=== PATIENT | male | born 2000 | race Hispanic/Latino ===

== ENCOUNTER → 2025-02-11 | Day surgery (SDC) | payer OTHER ==
[2025-02-07 09:17] LABS: BASOPHILS % 0.4 % (0.0-1.0); EOSINOPHILS % 0.6 % (0.0-6.0); LYMPHOCYTES % 34.7 % (18.0-39.1); MONOCYTES % 7.9 % (4.4-11.3); NEUTROPHILS % 56.2 % (38.7-80.0); RED CELL DISTRIBUTION WIDTH 12.0 % (11.7-14.4)
[2025-02-07 09:55] LABS: EST GLOMERULAR FILTRATION RATE 127.0 ML/MIN (>=60)
[~2025-02-11] MED LIST: ACETAMINOPHEN 1000 MG/100 ML 100 ML IV ONE; FENTANYL CITRATE/PF 100MCG/2 ML INJ ONE; LEVOFLOXACIN250 MG PO; LIDOCAINE HCL 2% LOCAL INJ 5 ML SDV VIAL INJ ONE; PROPOFOL IV EMULSION 10 MG/ML 20 ML VIAL ONE; SEVOFLURANE INHAL SOLN 250 ML PEN BTL ONE; SULINDAC150 MG PO
[2025-02-11] MEDS: LACTATED RINGER'S 1,000 ML ONE (07:47)
[2025-02-11 10:37] VITALS: TEMP 97.4
[2025-02-11 12:10] VITALS: BP 135/82; PULSE 82; RESP 17; O2SAT 100
== END | disposition home or self-care (01) ==
LOC: OR 06:08
PROVIDERS: ATTEND Surgery
DX: K40.90 Unilateral inguinal hernia, without obstruction or gangrene, not specified as recurrent (principal); Z79.1 Long term (current) use of non-steroidal anti-inflammatories (NSAID); Z01.812 Encounter for preprocedural laboratory examination
CPT/HCPCS: 36415; 49505; 80048; 85025; C1781; J0131; J2003; J2704; J3010; J7121